=== PATIENT | female | born 1965 | race Caucasian/White ===

== ENCOUNTER 2020-12-17 03:25 | Observation (INO) ==
[2020-12-17 04:48] LABS: ABS Eosinophils 0.1 10^3/ul (0-0.6); ABS Lymphocytes 0.8 10^3/ul (1.0-4.8); ABS Monocytes 0.9 10^3/ul (0-0.8); ABS Neutrophils 7.9 10^3/ul (1.5-7.7); Eosinophil % 0.5 %; Hematocrit 37 % (35-47); Hemoglobin 12.5 g/dL (12.0-16.0); Lymphocyte % 8.2 %; Mean Corpuscular HGB Conc 34 g/dL (31-36); Mean Corpuscular Hemoglobin 31 pg (27-31); Mean Corpuscular Volume 90 fL (80-97); Mean Platelet Volume 7.4 fL (7.4-10.4); Platelet Count 266 10^3/uL (150-450); Red Cell Distribution Width 13 % (10-15); White Blood Count 9.6 10^3/uL (3.5-10.8)
[2020-12-17 04:55] LABS: INR 1.12 (0.82-1.09)
[2020-12-17 05:04] LABS: Albumin 3.5 g/dL (3.2-5.2); Albumin/Globulin Ratio 1.5 (1-3); Calcium 8.2 mg/dL (8.6-10.3); EGFR African American 86.9 (>60); EGFR Non-African American 71.9 (>60); Globulin 2.3 g/dL (2-4); Potassium 3.4 mmol/L (3.5-5.0); Total Bilirubin 0.5 mg/dL (0.2-1.0); Total Protein 5.8 g/dL (6.4-8.9)
[2020-12-17] MEDS ORDERED: Iohexol 350 (CONTRAST) 500 ML MDV IV ONE (05:33)
[2020-12-17] MEDS ORDERED: cefTRIAXone 1 gm/50 mL NS BAG 1 GM/50 ML BAG IV ONE (08:07)
[2020-12-17 08:34] LABS: Urine Appearance Cloudy; Urine Bilirubin Negative (Negative); Urine Blood 2+ (Negative); Urine Color Yellow; Urine Glucose Negative (Negative); Urine Ketones 1+ (Negative); Urine Nitrite Negative (Negative); Urine Protein Negative (Negative); Urine Specific Gravity 1.043 (1.002-1.030); Urine Urobilinogen Negative (Negative)
[2020-12-17 08:41] LABS: Urine Bacteria 1+ (Absent); Urine Red Blood Cell 2+(6-10/hpf) (Absent); Urine Squamous Epithelial Cell Present (Absent); Urine White Blood Cell 3+(>20/hpf) (Absent)
[2020-12-17 08:55] LABS: Hematocrit 34 % (35-47); Hemoglobin 11.8 g/dL (12.0-16.0)
[2020-12-17] MEDS ORDERED: Ondansetron 4 mg VIAL 2 MG/ML 2 ml VIAL IV PRN (08:55)
[2020-12-17] MEDS: NS 0.9% 1000 ml BAG 1,000 ML IV SCH ×4 (10:05→12:07)
[2020-12-17 15:30] LABS: Hematocrit 31 % (35-47); Hemoglobin 10.6 g/dL (12.0-16.0)
[2020-12-17] MEDS ORDERED: Potassium Chloride LIQUID 20 MEQ/15 ML LIQUID PO ONE (16:47)
[2020-12-17 17:20] LABS: C Reactive Protein 75.54 mg/L (<8.01); Magnesium 1.8 mg/dL (1.9-2.7)
[2020-12-17 23:32] LABS: Hematocrit 30 % (35-47); Hemoglobin 10.4 g/dL (12.0-16.0)
[2020-12-18 05:58] LABS: ABS Eosinophils 0.1 10^3/ul (0-0.6); ABS Lymphocytes 1.5 10^3/ul (1.0-4.8); ABS Monocytes 1.5 10^3/ul (0-0.8); ABS Neutrophils 7.9 10^3/ul (1.5-7.7); Eosinophil % 0.5 %; Hematocrit 31 % (35-47); Hemoglobin 10.6 g/dL (12.0-16.0); Lymphocyte % 13.4 %; Mean Corpuscular HGB Conc 34 g/dL (31-36); Mean Corpuscular Hemoglobin 31 pg (27-31); Mean Corpuscular Volume 89 fL (80-97); Mean Platelet Volume 7.4 fL (7.4-10.4); Platelet Count 243 10^3/uL (150-450); Red Blood Count 3.48 10^6 /uL (3.70-4.87); Red Cell Distribution Width 13 % (10-15)
[2020-12-18 06:17] LABS: Albumin 3.3 g/dL (3.2-5.2); Albumin/Globulin Ratio 1.4 (1-3); C Reactive Protein 131.77 mg/L (<8.01); Calcium 8.2 mg/dL (8.6-10.3); EGFR African American 107.9 (>60); EGFR Non-African American 89.2 (>60); Globulin 2.4 g/dL (2-4); Potassium 3.7 mmol/L (3.5-5.0); Total Bilirubin 0.3 mg/dL (0.2-1.0); Total Protein 5.7 g/dL (6.4-8.9)
[2020-12-18] MEDS ORDERED: cefTRIAXone 1 gm/50 mL NS BAG 1 GM/50 ML BAG IVPB SCH (08:00)
[2020-12-18 11:18] VITALS: BP 128/65
== END 2020-12-18 11:00 | disposition home or self-care (01) ==
LOC: EDBD → ED 03:25 → MED 03:25
PROVIDERS: ADMIT Pediatrics; ATTEND Internal Medicine